=== PATIENT | male | born 1945 | race Caucasian/White ===

== ENCOUNTER 2022-03-20 13:22 | Outpatient (CLI) | payer MEDICARE ==
[2022-03-20 14:53] LABS: #Eosinphils 0.2 10x3/uL (0.0-0.5); #Monocytes 0.5 10x3/uL (0.0-1.1); #Neutrophils 4.6 10x3/uL (1.5-8.4); %Basophils 0.6 % (0.0-2.0); %Eosinophils 2.2 % (0.0-6.0); %Lymphocytes 21.8 % (18.0-47.0); %Monocytes 7.7 % (0.0-10.0); %Neutrophils 67.6 % (40.0-75.0); Hemoglobin 13.8 g/dL (13.5-17.5); Mean Corpuscular HGB CONC 33.3 g/dL (32.0-36.0); Mean Corpuscular Hemoglobin 30.5 pg (27.0-33.0); Mean Corpuscular Volume 91.6 fl (81.2-95.1); Platelet Count 250 10x3/uL (150-450); RBC Distribution Width 13.5 % (11.5-14.5); Red Blood Cell (RBC) Count 4.52 10x6/uL (4.32-5.72); White Blood Cell (WBC) Count 6.8 10x3/uL (3.5-10.5)
[2022-03-20 14:58] LABS: Prothrombin Time 10.5 sec (9.5-12.1)
[2022-03-20 14:59] LABS: Anion Gap 14 mmol/L (10-20); BUN (Urea Nitrogen) 24 mg/dL (8.4-25.7); Calc. Creatinine Clearance 0 mL/min (70-130); Calcium 9.5 mg/dL (7.8-10.44); Carbon Dioxide 25 mmol/L (23-31); Chloride 104 mmol/L (98-107); Estimated GFR 75; Glucose 105 mg/dL (83-110); Sodium 138 mmol/L (136-145)
== END 2022-03-20 13:23 | disposition home or self-care (01) ==
LOC: LABBT 13:22
PROVIDERS: ATTEND Orthopaedic Surgery
DX: Z01.818 Encounter for other preprocedural examination (principal); M16.11 Unilateral primary osteoarthritis, right hip; Z20.822 Contact with and (suspected) exposure to COVID-19
CPT/HCPCS: 80048; 85025; 85610; 87081; 87811; 93005; 93010

== ENCOUNTER 2022-03-25 05:28 | Observation (INO) | payer MEDICARE ==
[2022-03-21 10:44] VITALS: BMI 25.0
[2022-03-25] MEDS ORDERED: Sodium Chloride 0.9% 100 ML ONE ×2 (05:56→06:57)
[2022-03-25] MEDS ORDERED: Tranexamic Acid 1,000 MG/10 ML VIAL ONE (05:56)
[2022-03-25] MEDS ORDERED: Vancomycin (BATCH) 1.5 GRAM/300 ML BAG ONE (05:56)
[2022-03-25] MEDS ORDERED: Propofol 1,000 MG/100 ML VIAL IV ONE (06:44)
[2022-03-25] MEDS ORDERED: fentaNYL Citrate/PF 100 MCG/2 ML SYRINGE ONE (06:44)
[2022-03-25] MEDS ORDERED: Bupivacaine PF 0.5% 30 ML VIAL ONE (06:49)
[2022-03-25] MEDS ORDERED: CEFAZOLIN 2 GM VIAL ONE (06:57)
[2022-03-25] MEDS ORDERED: diphenhydrAMINE 25 MG CAP PO PRN (06:59)
[2022-03-25] MEDS ORDERED: Ondansetron PF 4 MG/2 ML Vial IVP PRN (06:59)
[2022-03-25] MEDS ORDERED: Promethazine HCl 25 MG/ML VIAL IM PRN ×2 (06:59→09:00)
[2022-03-25] MEDS ORDERED: Zolpidem Tartrate 5 MG TAB PO PRN (06:59)
[2022-03-25] MEDS ORDERED: HYDROcodone/Acetaminophen 10/325 mg Tablet PO PRN (06:59)
[2022-03-25] MEDS ORDERED: Acetaminophen 325 MG TAB PO PRN (06:59)
[2022-03-25] MEDS ORDERED: Lidocaine 1% (PF) 30 ML VIAL ONE (07:00)
[2022-03-25] MEDS ORDERED: Midazolam HCl 2 mg/2 ml Vial ONE (07:00)
[2022-03-25] MEDS ORDERED: Fentanyl 100 MCG/2 ML VIAL ONE ×2 (07:00→09:02)
[2022-03-25] MEDS ORDERED: Bupivacaine HCl 0.5%/Epinephrine 1:200,000/PF 30 ml Vial ONE (07:20)
[2022-03-25] MEDS ORDERED: Phenylephrine 10 MG/ML VIAL ONE (07:20)
[2022-03-25] MEDS ORDERED: ePHEDrine 50 MG/ML VIAL ONE (07:20)
[2022-03-25] MEDS ORDERED: Promethazine HCl 25 MG/ML VIAL IVPB PRN (09:00)
[2022-03-25] MEDS ORDERED: Ondansetron HCl/PF 4 MG/2 ML Vial IVP PRN (09:00)
[2022-03-25] MEDS: Sodium Chloride 0.9% 1,000 ML IV SCH ×2 (12:09→18:40)
[2022-03-25] MEDS: Aspirin 81 mg Enteric Coated Tablet PO SCH ×2 (12:09→20:33)
[2022-03-25] MEDS: Ferrous Gluconate 324 MG TAB PO SCH ×2 (12:10→20:33)
[2022-03-25] MEDS: Multivitamin W/ Minerals 1 TAB PO SCH (12:10)
[2022-03-25] MEDS: Senokot S 8.6-50 MG TAB PO SCH ×2 (12:10→20:33)
[2022-03-25] MEDS: Ketorolac Tromethamine 30 MG/ML VIAL IVP SCH ×2 (12:11→20:32)
[2022-03-25] MEDS: HYDROcodone/Acetaminophen 10/325 mg Tablet PO PRN ×2 (12:38→18:40)
[2022-03-25] MEDS ORDERED: Ketorolac Tromethamine 30 MG/ML VIAL IVP SCH (14:00)
[2022-03-25] MEDS: CEFAZOLIN 2 GM in Sodium Chloride 0.9% 100 ML IVPB SCH ×2 (15:45→20:31)
[2022-03-25] MEDS ORDERED: Atorvastatin Calcium 20 MG TAB PO SCH (21:00)
[2022-03-25] MEDS ORDERED: Simvastatin 40 MG TAB PO SCH (21:00)
[2022-03-26] MEDS: Ketorolac Tromethamine 30 MG/ML VIAL IVP SCH (04:36)
[2022-03-26 05:17] LABS: Hemoglobin 12.7 g/dL (14.0-18.0); Mean Corpuscular Hemoglobin 32.1 pg (27.0-31.0); Mean Platelet Volume 7.4 fL (7.4-10.4); Platelet Count 172 thou/uL (130-400); RBC Distribution Width 12.4 % (11.5-14.5); Red Blood Cell (RBC) Count 3.94 mill/uL (4.70-6.10); White Blood Cell (WBC) Count 7.2 thou/uL (4.8-10.8)
[2022-03-26 07:48] VITALS: BP 136/76; TEMP 98.1
[2022-03-26] MEDS: Sodium Chloride 0.9% 1,000 ML IV SCH (07:48)
[2022-03-26] MEDS: Senokot S 8.6-50 MG TAB PO SCH (08:45)
[2022-03-26] MEDS: Ferrous Gluconate 324 MG TAB PO SCH (08:46)
[2022-03-26] MEDS: Multivitamin W/ Minerals 1 TAB PO SCH (08:46)
[2022-03-26] MEDS: Aspirin 81 mg Enteric Coated Tablet PO SCH (08:46)
[2022-03-26] MEDS: HYDROcodone/Acetaminophen 10/325 mg Tablet PO PRN (08:48)
== END 2022-03-26 10:20 | disposition home or self-care (01) ==
LOC: SDC 05:28 → SJJU 07:02
PROVIDERS: ADMIT Orthopaedic Surgery; ATTEND Orthopaedic Surgery
PROC: 0SR904A Replacement of Right Hip Joint with Ceramic on Polyethylene Synthetic Substitute, Uncemented, Open Approach (ICD-10-PCS; principal; 2022-03-25)
PROC: 3E0T3BZ Introduction of Anesthetic Agent into Peripheral Nerves and Plexi, Percutaneous Approach (ICD-10-PCS; 2022-03-25)
DX: M16.11 Unilateral primary osteoarthritis, right hip (principal); E78.5 Hyperlipidemia, unspecified; Z79.899 Other long term (current) drug therapy
CPT/HCPCS: 27130; 64999; 73502; 85027; 96361 ×2; 96374; 96375; 96376 ×2; 97110 ×2; 97116 ×2; 97530 ×2; C1776; G0378 ×2; J3370; 36415; J0690; J1885; J2001; J2250; J2370; J2704; J3010; J3490; J7050; S0020

== ENCOUNTER 2022-04-11 12:25 | Outpatient (CLI) | payer MEDICARE | END 2022-04-11 12:26 | disposition home or self-care (01) | LOC: BICULT 12:25 | PROVIDERS: ATTEND Orthopaedic Surgery | DX: M79.604 Pain in right leg (principal) ==

== ENCOUNTER 2023-11-27 05:47 | Observation (INO) | payer MEDICARE ==
[2023-11-24 13:26] VITALS: BMI 25.0
[2023-11-27] MEDS ORDERED: Midazolam HCl 2 mg/2 ml Vial ONE (06:09)
[2023-11-27] MEDS ORDERED: fentaNYL 50 mcg/mL 1 mL Vial ONE (06:09)
[2023-11-27] MEDS ORDERED: Ropivacaine 0.5% HCl/PF (150 MG/30 ML VIAL) ONE (06:10)
[2023-11-27] MEDS ORDERED: Ropivacaine 0.2% HCl/PF 20 ML ONE (06:10)
[2023-11-27] MEDS ORDERED: Tranexamic Acid 1,000 MG/10 ML VIAL ONE (06:22)
[2023-11-27] MEDS ORDERED: Sodium Chloride 0.9% 100 ML ONE ×2 (06:23→06:51)
[2023-11-27] MEDS ORDERED: Vancomycin (BATCH) 1.5 GM/300 ML BAG ONE (06:23)
[2023-11-27] MEDS ORDERED: CEFAZOLIN 2 GM VIAL ONE (06:51)
[2023-11-27] MEDS ORDERED: PROPOFOL 20 ML ONE (07:03)
[2023-11-27] MEDS ORDERED: HYDROcodone/Acetaminophen 10/325 mg Tablet PO PRN ×2 (07:10)
[2023-11-27] MEDS ORDERED: fentaNYL 50 mcg/mL 1 mL Vial SLOW IVP PRN (07:17)
[2023-11-27] MEDS ORDERED: Promethazine HCl 25 MG/ML VIAL IM PRN (07:30)
[2023-11-27] MEDS ORDERED: Ondansetron PF 4 MG/2 ML Vial IVP PRN (07:30)
[2023-11-27] MEDS ORDERED: Zolpidem Tartrate 5 MG TAB PO PRN (07:30)
[2023-11-27] MEDS ORDERED: Ropivacaine 0.2% 550 ML 550 ML NERVE BLCK SCH (07:30)
[2023-11-27] MEDS ORDERED: Lidocaine 1% PF 5 ML VIAL ONE (07:38)
[2023-11-27] MEDS ORDERED: PHENYLEPHRINE-NS 100 MCG/ML 10 ML SYRINGE ONE (07:38)
[2023-11-27] MEDS ORDERED: Rocuronium Bromide 10 MG/ML (10ML VIAL) ONE (07:38)
[2023-11-27] MEDS ORDERED: Ondansetron PF 4 MG/2 ML Vial ONE (07:38)
[2023-11-27] MEDS ORDERED: ePHEDrine Sulfate 50 MG/10 ML VIAL ONE (08:03)
[2023-11-27] MEDS ORDERED: SUGAMMADEX SODIUM 200 MG/2 ML VIAL ONE (08:25)
[2023-11-27] MEDS ORDERED: Calcium Chloride 1 GM/10 ML Abboject SYRINGE ONE (08:49)
[2023-11-27] MEDS: CEFAZOLIN 2 GM in Sodium Chloride 0.9% 100 ML IVPB SCH (15:48)
[2023-11-27] MEDS: HYDROcodone/Acetaminophen 10/325 mg Tablet PO PRN (15:57)
[2023-11-27] MEDS: Lactated Ringer's 1,000 ML IV SCH (16:00)
[2023-11-27] MEDS: Ketorolac Tromethamine 30 MG (1 mL) VIAL IVP SCH (17:55)
[2023-11-27] MEDS: Rosuvastatin 20 MG TAB PO SCH (19:50)
[2023-11-28] MEDS: HYDROcodone/Acetaminophen 10/325 mg Tablet PO PRN (08:06)
[2023-11-28 09:39] VITALS: BP 160/93; TEMP 97.6
== END 2023-11-28 11:20 | disposition home or self-care (01) ==
LOC: SDC 05:47 → SURG A 07:10 → SDC 11-28 09:10 → SURG A 11-28 09:10
PROVIDERS: ADMIT Orthopaedic Surgery; ATTEND Orthopaedic Surgery
PROC: 0RRK0JZ Replacement of Left Shoulder Joint with Synthetic Substitute, Open Approach (ICD-10-PCS; principal; 2023-11-27)
DX: M19.012 Primary osteoarthritis, left shoulder (principal); E78.5 Hyperlipidemia, unspecified; Z79.899 Other long term (current) drug therapy
CPT/HCPCS: 23472; 97110; 97116; 97530; 97535; A4306; C1713; C1776 ×2; J3010; J3370; J1885; J2250; J2405; J2704; J2795; J3490; J7120